=== PATIENT | female | born 1990 | race Caucasian/White ===

== ENCOUNTER 2023-11-02 07:01 | Observation (INO) | payer BC ==
[2023-11-02 08:43] LABS: Basophils % (A) 0 %; Eosinophils # (A) 0.1 k/uL (0-0.7); Eosinophils % (A) 1 %; HCT 34.2 % (34.0-46.0); HGB 11.2 gm/dL (11.4-16.0); Lymphocytes # (A) 2.2 k/uL (1.0-4.8); Lymphocytes % (A) 23 %; MCH 30.3 pg (25.0-35.0); MCHC 32.9 g/dL (31.0-37.0); MCV 92.1 fL (80.0-100.0); Monocytes # (A) 0.4 k/uL (0-1.0); Monocytes % (A) 5 %; Neutrophils # (A) 6.4 k/uL (1.3-7.7); Neutrophils % (A) 69 %; Platelet Count 346 k/uL (150-450); RBC 3.72 m/uL (3.80-5.40); WBC 9.2 k/uL (3.8-10.6)
[2023-11-02] MEDS: LACTATED RINGERS 1,000 ML IV ONE (08:56)
[2023-11-02] MEDS: BETAMET ACET-BETAMETH SOD PHOS 6 MG/ML MDV IM SCH (09:09)
[2023-11-02] MEDS: NIFEdipine XL 30 MG TAB.ER.24 PO SCH (09:09)
[2023-11-02 16:03] VITALS: RESP 16
[2023-11-02] MEDS: ACETAMINOPHEN TAB 500 MG TAB PO PRN (20:35)
[2023-11-03 01:49] VITALS: BP 103/59; PULSE 87; TEMP 96.9
--- NOTE | 2023-11-03 09:08 | P.HPOB ---
History of Present Illness H&P Date: 11/03/23 Chief Complaint: IUP @ 31 weeks, complete previa, VB This is a 22 yo at 31 weeks of with known complete previa that started bleeding yesterday am. She states she did not fill a pad, but had quarter size spots on a pad. she noted an occasional ctx. she was admitted overnight for observation. she has a h/o a term 39 . she has been receiving routine care with my self complicated by a complete previa. Review of Systems Constitutional: Denies chills, Denies fatigue, Denies fever Ears, nose, mouth and throat: Denies headache Cardiovascular: Reports leg edema Respiratory: Denies dyspnea Gastrointestinal: Denies nausea, Denies vomiting Genitourinary: Reports as per HPI, Reports Past Medical History Past Medical History: No Reported History History of Any Multi-Drug Resistant Organisms: None Reported Past Surgical History: Cholecystectomy Past Anesthesia/Blood Transfusion Reactions: No Reported Reaction Past Psychological History: Anxiety, Depression Smoking Status: Never smoker - Past Family History Mother Family Medical History: No Reported History Medications and Allergies Home Medications Medication Instructions Recorded Confirmed Type Aspirin 81 mg PO DAILY 11/02/23 11/02/23 History Vit No.179/Iron/Folic 1 tab PO DAILY 11/02/23 11/02/23 History [ Tablet] Allergies Allergy/AdvReac Type Severity Reaction Status Date / Time amoxicillin [From Augmentin] Allergy Rash/Hives Verified 11/02/23 07:05 clavulanic acid Allergy Rash/Hives Verified 11/02/23 07:05 [From Augmentin] Exam Osteopathic Statement: *. No significant issues noted on an osteopathic structural exam other than those noted in the History and Physical/Consult. Vital Signs Temp Pulse Resp BP Pulse Ox 11/03/23 01:13 96.9 F L 87 16 103/59 98 11/02/23 15:32 98.8 F 105 H 16 120/74 11/02/23 08:57 97.3 F L 118 H 18 116/81 99 Intake and Output 11/02/23 11/03/23 11/03/23 22:59 06:59 14:59 Other: # Voids 2 2 Targeted physical exam was performed upon admission, patient appeared comfortable lying in bed, breathing was nonlabored, abdomen is noted to be gravid and nontender, cervical exam is deferred as known complete previa, heart tones were noted to be category 1, no contractions were graphing. Results Result Diagrams: 11/02/23 08:15 Assessment and Plan (1) 31 weeks gestation of Current Visit: Yes Status: Acute Code(s): Z3A.31 - 31 WEEKS GESTATION OF SNOMED Code(s): 79662335 (2) Complete placenta previa nos or without hemorrhage, third trimester Current Visit: Yes Status: Acute Code(s): O44.03 - COMPLETE PLACENTA PREVIA NOS OR WITHOUT HEMOR, THIRD TRI SNOMED Code(s): 6505593 (3) Vaginal bleeding in Current Visit: Yes Status: Acute Code(s): O46.90 - ANTEPARTUM HEMORRHAGE, UNSPECIFIED, UNSPECIFIED TRIMESTER SNOMED Code(s): 90592662436613148 Plan: 33-year-old G3, P1 at 31 weeks of presents with vaginal bleeding that started early this evening. Patient has a known complete previa. Patient presented to triage where a small amount of bleeding was noted on patient's pad. Quarter size spots of blood were appreciated on her pad. Patient was admitted with for IV hydration, pad counts and close observation given known complete previa.
--- NOTE | 2023-11-03 09:09 | P.DS ---
Providers Date of admission: 11/02/23 08:51 Expected date of discharge: 11/03/23 Attending physician: Dayana William Primary care physician: Stated None - Discharge Diagnosis(es) (1) 31 weeks gestation of Current Visit: Yes Status: Acute (2) Complete placenta previa nos or without hemorrhage, third trimester Current Visit: Yes Status: Acute (3) Vaginal bleeding in Current Visit: Yes Status: Acute Hospital Course: 33-year-old G3, P1 at 31-4/7 weeks presented yesterday with complaints of vaginal bleeding with known complete previa. Patient was admitted for close observation. Patient did receive betamethasone for lung maturation. Patient has done well through her observation period. Bleeding has ceased and now is only noted to be brown or nonexistent. Patient denies contractions. Patient notes good movement. heart tones are NST are category 1. Will plan discharge home with pelvic rest, modified bedrest. Patient has an appointment in the office next week, discussed routine weekly nonstress test and obstetrical appointments. Discussion regarding delivery at 37 weeks via C- section. Bleeding precautions were reviewed. Patient and state understanding of plan Patient Condition at Discharge: Good Plan - Discharge Summary New Discharge Prescriptions: No Action Vit No.179/Iron/Folic [ Tablet] 1 tab PO DAILY Aspirin 81 mg PO DAILY Discharge Medication List Aspirin 81 mg PO DAILY 11/02/23 [History] Vit No.179/Iron/Folic [ Tablet] 1 tab PO DAILY 11/02/23 [History] Follow up Appointment(s)/Referral(s): Dayana William DO [Doctor of Osteopathic Medicine] - 1 Week Patient Instructions/Handouts: Placenta Previa (DC), Placenta Previa (GEN) Activity/Diet/Wound Care/Special Instructions: Patient is to be off work from here until period. Any further episodes of vaginal bleeding she is urged to contact us or be seen in OB triage, patient is to continue with routine weekly obstetrical appointments. Patient to call with any concerns or questions. Discharge Disposition: HOME SELF-CARE
--- NOTE | 2023-11-03 18:31 | P.MSEPDOC ---
Presenting Problems - Arrival Data Date of Arrival on Unit: 11/02/23 Time of Arrival on Unit: 07:00 Mode of Transport: Ambulatory - Complaint OB-Reason for Admission/Chief Complaint: Vaginal Bleeding Medical History - Information : 3 Para: 1 Term: 1 : 0 Abortions: Spontaneous or Elective: 1 Number of Living Children: 1 - Gestational Age Gestational Age by OG (wks/days): 31 Weeks and 3 Days - History Complications: Placenta Previa Review of Systems - Review of Systems Constitutional: No problems Breast: No problems ENT: No problems Cardiovascular: No problems Respiratory: No problems Gastrointestinal: No problems Genitourinary: No problems Musculoskeletal: No problems Neurological: No problems Skin: No problems Vital Signs - Temperature Temperature: 96.9 F Temperature Source: Temporal Artery Scan - Pulse Right Pulse Rate: 87 Pulse Assessment Method: Pulse Oximetry - Respirations Respiratory Rate: 16 Oxygen Delivery Method: Room Air O2 Sat by Pulse Oximetry: 98 - Blood Pressure Right Arm Blood Pressure: 103/59 Blood Pressure Mean: 73 Blood Pressure Source: Automatic Cuff Medical Screen Scoring - Uterine Contractions Frequency From (mins): 2 Frequency To (mins): 5 Duration From (seconds): 30 Duration To (seconds): 50 Intensity: Mild Resting: Soft to palpation - Assessment - Baby A Baseline FHR: 135 Heart Rate - NICHD Category: Category I (Normal) NST: Reactive Physician Notification - Physician Notified Physician Notified Date: 11/02/23 Physician Notified Time: 07:40 Physician: Dayana William New Order Received: Yes - Notification Comment Comment: IV, labs, pt Stewart will be in to see Pt Maternal Triage Index - Maternal Triage Index Presenting for scheduled procedure w/no complaint: No - Stat/Priority 1 Stat Priority 1: No - Urgent/Priority 2 Urgent Priority 2: Yes Provider Notified: Dayana William Provider Notified Time: 07:40 Criteria Met for Priority 2: < 34 spotting, contractions Disposition - Disposition OB Disposition: Admit Discharge Date: 11/03/23 Discharge Time: 09:50 I agree with the RN Medical Screening Exam: Yes Case reviewed; plan agreed upon as documented in EMR&OBIX.: Yes Diagnosis: RELATED CONDITIONS, UNSPECIFIED, THIRD TRIMESTER
== END 2023-11-03 09:50 | disposition home or self-care (01) ==
LOC: FBPOP 07:01 → 4FBP 08:51
PROVIDERS: ADMIT Obstetrics & Gynecology Obstetrics; ATTEND Obstetrics & Gynecology Obstetrics
DX: O44.13 Complete placenta previa with hemorrhage, third trimester (principal); O99.343 Other mental disorders complicating pregnancy, third trimester; F32.A Depression, unspecified; F41.9 Anxiety disorder, unspecified; Z3A.31 31 weeks gestation of pregnancy; Z79.82 Long term (current) use of aspirin; Z88.0 Allergy status to penicillin
CPT/HCPCS: 59025; 99215; 96365; 96372 ×2; 85025; G0378 ×2; G0379; J0702 ×2

== ENCOUNTER 2023-11-14 09:24 | Observation (INO) | payer BC ==
[2023-11-14] MEDS: LACTATED RINGERS 1,000 ML IV SCH (10:15)
[2023-11-14 11:05] LABS: Basophils % (A) 0 %; Eosinophils # (A) 0.1 k/uL (0-0.7); Eosinophils % (A) 1 %; HCT 31.1 % (34.0-46.0); HGB 10.6 gm/dL (11.4-16.0); Lymphocytes # (A) 2.2 k/uL (1.0-4.8); Lymphocytes % (A) 24 %; MCH 30.7 pg (25.0-35.0); MCHC 34.2 g/dL (31.0-37.0); MCV 89.7 fL (80.0-100.0); Mean Platelet Volume 8.5; Monocytes # (A) 0.5 k/uL (0-1.0); Monocytes % (A) 5 %; Neutrophils # (A) 6.1 k/uL (1.3-7.7); Neutrophils % (A) 68 %; Platelet Count 349 k/uL (150-450); RBC 3.46 m/uL (3.80-5.40); RDW 14.2 % (11.5-15.5)
--- NOTE | 2023-11-14 11:28 | P.HPOB ---
History of Present Illness H&P Date: 11/14/23 Chief Complaint: Vaginal bleeding with marginal previa 33-year-old presents at 33 weeks and 1 day complaining of vaginal bleeding. She has a known marginal previa. Patient had bleeding 2 weeks ago and got steroids. The bleeding had stopped but then restarted this morning. On the monitor the heart tones are 135 with moderate variability, category 1. She is having cramping noted on the monitor every few minutes and feeling like cramping. Review of Systems All systems: negative Constitutional: Denies chills, Denies fever Eyes: denies blurred vision, denies pain Ears, nose, mouth and throat: Denies headache, Denies sore throat Cardiovascular: Denies chest pain, Denies shortness of breath Respiratory: Denies cough Gastrointestinal: Denies abdominal pain, Denies diarrhea, Denies nausea, Denies vomiting Genitourinary: Denies dysuria, Denies hematuria Musculoskeletal: Denies myalgias Integumentary: Denies pruritus, Denies rash Neurological: Denies numbness, Denies weakness Psychiatric: Denies anxiety, Denies depression Endocrine: Denies fatigue, Denies weight change Past Medical History Past Medical History: No Reported History History of Any Multi-Drug Resistant Organisms: None Reported Past Surgical History: Cholecystectomy Additional Past Surgical History / Comment(s): D&C Past Anesthesia/Blood Transfusion Reactions: No Reported Reaction Past Psychological History: Anxiety, Depression Smoking Status: Never smoker Past Alcohol Use History: None Reported Past Drug Use History: None Reported - Past Family History Mother Family Medical History: No Reported History Medications and Allergies Home Medications Medication Instructions Recorded Confirmed Type Aspirin 81 mg PO DAILY 11/02/23 11/14/23 History Vit No.179/Iron/Folic 1 tab PO DAILY 11/02/23 11/14/23 History [ Tablet] NIFEdipine XL [Procardia Xl] 30 mg PO DAILY 11/14/23 11/14/23 History Allergies Allergy/AdvReac Type Severity Reaction Status Date / Time amoxicillin [From Augmentin] Allergy Rash/Hives Verified 11/14/23 09:41 clavulanic acid Allergy Rash/Hives Verified 11/14/23 09:41 [From Augmentin] Exam Osteopathic Statement: *. No significant issues noted on an osteopathic structural exam other than those noted in the History and Physical/Consult. Vital Signs Temp Pulse Resp BP Pulse Ox 11/14/23 09:52 97.9 F 114 H 18 137/81 95 Intake and Output 11/13/23 11/14/23 11/14/23 22:59 06:59 14:59 Other: Weight 94.347 kg Heart: Regular rate and rhythm Lungs: Clear to auscultation bilaterally Abdomen: Soft, nontender Extremities: Negative Homans sign Sterile speculum exam: There is some blood in the vaginal vault coming from inside the cervix. Results Result Diagrams: 11/14/23 10:15 Abnormal Lab Results - Last 24 Hours (Table) 11/14/23 Range/Units 10:15 RBC 3.46 L (3.80-5.40) m/uL Hgb 10.6 L (11.4-16.0) gm/dL Hct 31.1 L (34.0-46.0) % Assessment and Plan (1) 33 weeks gestation of Current Visit: Yes Status: Acute Code(s): Z3A.33 - 33 WEEKS GESTATION OF SNOMED Code(s): 14369727 (2) Marginal placenta previa with intrapartum hemorrhage in third trimester Current Visit: Yes Status: Acute Code(s): O44.33 - PARTIAL PLACENTA PREVIA WITH HEMORRHAGE, THIRD TRIMESTER SNOMED Code(s): 75715922 Plan: 1. Admit to family place for observation 2. Continuous monitoring 3. Abdominal and transvaginal ultrasound to check the placenta location and to look for abruption 4. CBC and type and cross
--- NOTE | 2023-11-14 12:17 | US ---
EXAMINATION TYPE: US OB TV Cervical Measurement DATE OF EXAM: 11/14/2023 COMPARISON: Correlation with transabdominal study performed immediately prior. REASON FOR EXAM: Per Ordering Physician?this transvaginal scan is to assess the CERVICAL LENGTH for p lacenta previa GESTATIONAL AGE / DATING Physician Established: (33 weeks/1 days) EDC: 01/01/24 MATERNAL/ SURVEY CERVICAL LENGTH (transvaginal: norm> 2.5cm): 3.5 cm Ultrasound evidence of shortened cervix? no Ultrasound evidence of funneling? no small amount of fluid within cervical canal *marginal to complete placenta previa PRESENTATION: Vertex HEART RATE: 135 bpm IMPRESSION: 1. Cervical length 3.5 cm, with a small amount of fluid within the cervical canal. No evidence of fu nneling. 2. Placenta appears marginal to complete placenta previa, judged more towards the latter.
--- NOTE | 2023-11-14 12:25 | US ---
EXAMINATION TYPE: US OB >= 14 wk fetus DATE OF EXAM: 11/14/2023 COMPARISON: None CLINICAL INDICATION: Female, 33 years old with history of Vaginal bleeding, known placenta previa; bl eeding, known placenta previa TECHNIQUE: Transabdominal (TA) ultrasound of the gravid uterus performed. Transvaginal scanning is p erformed and reported separately. GESTATIONAL AGE / DATING Physician Established: (33 weeks/1 days) EDC: 01/01/24 Dates by LMP: LMP unknown Dates by First Scan: No previous this is first scan here Dates by Current Scan: (34 weeks/3 days) EDC: 12/23/23 SURVEY IUP: Single PLACENTA: Anterior PREVIA: marginal to complete (see TV imaging done subsequently) JAMES: 11.5 cm, Normal CERVICAL LENGTH (transabdominal: norm > 3.0cm): 4.2 cm *small amount of fluid noted within cervical canal [Note: transvaginally the cervical length is 3.5 cm, with a small amount of fluid within the cervical canal. No evidence of funneling.] BIOMETRY PRESENTATION: Vertex LIE: Oblique BPD: 8.4 cm 33 weeks / 5 days HC: 31.0 cm 34 weeks / 4 days AC: 30.2 cm 34 weeks / 2 days FL: 6.8 cm 35 weeks / 1 days ESTIMATED WEIGHT IN GRAMS: 2425 grams ESTIMATED WEIGHT IN LBS/OZ: 5 lbs. 6 oz. WEIGHT PERCENTAGE BASED ON ESTABLISHED DATES: 80% HC/AC: 1.02 Normal FL/AC: 23% Normal HEART RATE: 135 bpm RHYTHM: Normal IMPRESSION: 1. Single, live intrauterine fetus measuring approximately 34 weeks 3 days. Further details above. 2. Vertex presentation. 3. Cervical length appears within normal limits. There is a small amount of fluid within the cervical canal. No evidence of funneling. 4. Placenta appears marginal to complete placenta previa, judged more towards the latter.
[2023-11-15 07:57] LABS: Basophils % (A) 0 %; Eosinophils # (A) 0.1 k/uL (0-0.7); Eosinophils % (A) 1 %; HCT 31.1 % (34.0-46.0); Lymphocytes # (A) 2.5 k/uL (1.0-4.8); Lymphocytes % (A) 33 %; MCH 29.7 pg (25.0-35.0); MCHC 32.4 g/dL (31.0-37.0); MCV 91.9 fL (80.0-100.0); Mean Platelet Volume 8.2; Monocytes # (A) 0.5 k/uL (0-1.0); Monocytes % (A) 6 %; Neutrophils # (A) 4.4 k/uL (1.3-7.7); Neutrophils % (A) 57 %; Platelet Count 329 k/uL (150-450); RBC 3.38 m/uL (3.80-5.40); RDW 13.8 % (11.5-15.5); WBC 7.7 k/uL (3.8-10.6)
--- NOTE | 2023-11-15 08:40 | P.PN ---
Progress Note - Text Progress Note Date: 11/15/23 33yo withknown complete previa. Patient was admitted approximately 2 weeks ago for vaginal bleeding that quickly turned to brown discharge. Patient did receive steroids at that time. Patient states she noted passage of a clot at home with bright red bleeding therefore presented to OB triage. Bleeding was noted coming from the cervix. A small amount of/trickle was noted on examination. Patient had uterine irritability at the time. heart tones have been category 1 throughout her stay. This morning patient notes brown discharge, denies contractions. Patient is noting good movement. Vital signs stable Labs reviewed, hemoglobin 10.6 on admission 10.0 this morning In general this is a well-nourished well-developed female in no acute distress resting comfortably in bed Abdomen is gravid heart tones noted to be category 1 Rare contraction Assessment Intrauterine at 33-2/7 weeks Complete previa Vaginal bleeding Plan Continue observation given bleeding yesterday, patient has received steroids at her last admission. Restart Procardia this morning, will advance diet and observe through the day. If no further bleeding today will consider discharge home tomorrow.
[2023-11-15] MEDS: NIFEdipine XL 30 MG TAB.ER.24 PO SCH (09:30)
[2023-11-15] MEDS: PRENATAL VIT-IRON-FOLIC ACID 1 EACH TABLET PO SCH (09:30)
[2023-11-16 08:47] VITALS: BP 112/74; PULSE 95; RESP 16; TEMP 97.3
--- NOTE | 2023-11-16 08:47 | P.DS ---
Providers Date of admission: 11/14/23 09:54 Expected date of discharge: 11/16/23 Attending physician: Dayana William Primary care physician: Stated None - Discharge Diagnosis(es) (1) 33 weeks gestation of Current Visit: Yes Status: Acute (2) Complete placenta previa nos or without hemorrhage, third trimester Current Visit: No Status: Acute (3) Vaginal bleeding in Current Visit: No Status: Acute Hospital Course: 33-year-old G3, P1 at 33-3/7 weeks that presented over the weekend with complaints of vaginal bleeding. Patient has known complete previa. Patient has been watched closely. This is her second bleed. Bleed was noted to moderate in nature. Complete previa remains on ultrasound evaluation. Patient has had no further bleeding for the past 24 hours. Patient notes good movement. She denies contractions. Patient Condition at Discharge: Good Plan - Discharge Summary New Discharge Prescriptions: No Action Vit No.179/Iron/Folic [ Tablet] 1 tab PO DAILY Aspirin 81 mg PO DAILY NIFEdipine XL [Procardia Xl] 30 mg PO DAILY Discharge Medication List Aspirin 81 mg PO DAILY 11/02/23 [History] Vit No.179/Iron/Folic [ Tablet] 1 tab PO DAILY 11/02/23 [History] NIFEdipine XL [Procardia Xl] 30 mg PO DAILY 11/14/23 [History] Follow up Appointment(s)/Referral(s): Dayana William DO [Doctor of Osteopathic Medicine] - 1-2 Days Patient Instructions/Handouts: Placenta Previa (DC), Placenta Previa (GEN) Activity/Diet/Wound Care/Special Instructions: Patient is to return to bedrest. Up to the bathroom privileges. Patient is to follow-up in the office on .. Bleeding precautions reviewed Discharge Disposition: HOME SELF-CARE
== END 2023-11-16 10:40 | disposition home or self-care (01) ==
LOC: FBPOP 09:24 → 4FBP 09:54
PROVIDERS: ADMIT Obstetrics & Gynecology; ATTEND Obstetrics & Gynecology Obstetrics
DX: O44.13 Complete placenta previa with hemorrhage, third trimester (principal); Z3A.33 33 weeks gestation of pregnancy; Z79.82 Long term (current) use of aspirin; Z79.899 Other long term (current) drug therapy; Z88.0 Allergy status to penicillin; Z88.8 Allergy status to other drugs, medicaments and biological substances
CPT/HCPCS: 59025; 99213; 96360; 96361; 86900; 86901; 85025 ×2; 86850; 76805; 76817; G0378; S0197 ×2

== ENCOUNTER 2023-11-17 23:04 | Inpatient (IN) | payer BC ==
--- NOTE | 2023-11-17 23:49 | P.HPOB ---
History of Present Illness H&P Date: 11/17/23 Chief Complaint: IUP @ 33 4/7 weeks, complete previa, vaginal bleeding 33-year-old 3 para 1-0-1-1 at 33-4/7 weeks that presents to labor and delivery with complaints of bright red bleeding that began at home. Patient is noting uterine cramping in addition. Patient was just recently discharged from the hospital on Wednesday for an episode of vaginal bleeding over the weekend. Patient had an initial episode of bleeding followed by continued brown discharge then 24 hours of no bleeding. Patient began bleeding this evening and presented back to triage. Patient does note good movement. Patient states she did take her Procardia today. Review of Systems Constitutional: Reports fatigue, Denies chills, Denies fever Ears, nose, mouth and throat: Denies headache Cardiovascular: Reports leg edema Respiratory: Denies dyspnea Gastrointestinal: Denies nausea, Denies vomiting Genitourinary: Reports as per HPI, Reports Past Medical History Past Medical History: No Reported History History of Any Multi-Drug Resistant Organisms: None Reported Past Surgical History: Cholecystectomy Additional Past Surgical History / Comment(s): D&C Past Anesthesia/Blood Transfusion Reactions: No Reported Reaction Smoking Status: Never smoker - Past Family History Mother Family Medical History: No Reported History Medications and Allergies Home Medications Medication Instructions Recorded Confirmed Type Aspirin 81 mg PO DAILY 11/02/23 11/14/23 History Vit No.179/Iron/Folic 1 tab PO DAILY 11/02/23 11/14/23 History [ Tablet] NIFEdipine XL [Procardia Xl] 30 mg PO DAILY 11/14/23 11/14/23 History Allergies Allergy/AdvReac Type Severity Reaction Status Date / Time amoxicillin [From Augmentin] Allergy Rash/Hives Verified 11/14/23 09:41 clavulanic acid Allergy Rash/Hives Verified 11/14/23 09:41 [From Augmentin] Exam Osteopathic Statement: *. No significant issues noted on an osteopathic structural exam other than those noted in the History and Physical/Consult. Intake and Output 11/17/23 11/17/23 11/18/23 14:59 22:59 06:59 Other: Weight 94.347 kg Targeted physical exam is performed this date General is a well-nourished well- developed female in no acute distress, breathing is nonlabored, abdomen is gravid, heart tones are noted to be category 1 and uterine irritability is appreciated, cervical exam is deferred given known complete previa, no active bleeding is noted on inspection of the external vaginal vault Assessment and Plan (1) 33 weeks gestation of Current Visit: No Status: Acute Code(s): Z3A.33 - 33 WEEKS GESTATION OF SNOMED Code(s): 92771554 (2) Complete placenta previa nos or without hemorrhage, third trimester Current Visit: No Status: Acute Code(s): O44.03 - COMPLETE PLACENTA PREVIA NOS OR WITHOUT HEMOR, THIRD TRI SNOMED Code(s): 3961084 (3) Vaginal bleeding in Current Visit: No Status: Acute Code(s): O46.90 - ANTEPARTUM HEMORRHAGE, UN SPECIFIED, UNSPECIFIED TRIMESTER SNOMED Code(s): 72509995470235859 Plan: 33-year-old G3, P1 at 33-4/7 weeks that presents with an episode of vaginal bleeding with known complete previa. Patient has been admitted twice before for very similar complaints. Patient's vital signs are stable. Will obtain CBC and type and screen. Plan to increase Procardia dose to 60. Continuous monitoring through the night, and pad counts
[2023-11-17] MEDS ORDERED: METHYLERGONOVINE 0.2 MG/ML 1 ML AMP IM PRN (23:50)
[2023-11-17] MEDS ORDERED: TERBUTALINE 1 MG/ML VIAL SQ PRN (23:50)
[2023-11-18] MEDS: LACTATED RINGERS 1,000 ML IV SCH (00:01)
[2023-11-18] MEDS: NIFEdipine XL 30 MG TAB.ER.24 PO STA (00:01)
[2023-11-18 01:57] LABS: Basophils % (A) 0 %; Eosinophils # (A) 0.1 k/uL (0-0.7); Eosinophils % (A) 1 %; HCT 31.7 % (34.0-46.0); HGB 10.3 gm/dL (11.4-16.0); Lymphocytes # (A) 2.8 k/uL (1.0-4.8); Lymphocytes % (A) 26 %; MCH 29.8 pg (25.0-35.0); MCHC 32.5 g/dL (31.0-37.0); MCV 91.6 fL (80.0-100.0); Monocytes # (A) 0.5 k/uL (0-1.0); Monocytes % (A) 5 %; Neutrophils # (A) 7.4 k/uL (1.3-7.7); Neutrophils % (A) 67 %; Platelet Count 322 k/uL (150-450); RBC 3.46 m/uL (3.80-5.40)
--- NOTE | 2023-11-18 09:56 | P.PN ---
Progress Note - Text Progress Note Date: 11/18/23 Patient did well overnight, minimal bleeding was appreciated when up to the bathroom. Patient states it is bright red with wiping but minimal brown discharge is appreciated on the earnest-pad. Patient denies contractions. Patient notes good movement. monitoring has been reassuring with category 1 heart tones and uterine irritability on occasion. Patient did receive her Procardia 60 mg this morning. Vital signs stable General ; patient appears comfortable in bed, tearful with plan of care being discussed Breathing appears nonlabored Abdomen is gravid and nontender heart tones noted be category 1 occasional contraction some uterine inability Cervical exam is deferred Assessment IUP at 33-5/7 weeks Complete placenta previa Vaginal bleeding Plan Continue close observation until 35 weeks, given this is her third episode of bright red bleeding at home with subsequent admission discussion regarding hospital admission is had with patient and her . Patient was recently discharged on Wednesday after no bleeding for 24 hours. Patient subsequently began bleeding last evening bright red in nature went up to the bathroom. Patient has already received steroids for lung maturation, she is on Procardia for uterine irritability. Discussed possibility of transfer to tertiary care center given early gestational age, they do request [facility] or [facility] if the need for transfer should arise. Long discussion regarding prematurity and stability of her bleeding at this current point. Multiple questions were answered. remains at the bedside given complex nature of this and concerns for his and unborn child.
--- NOTE | 2023-11-19 08:23 | P.PN ---
Subjective Progress Note Date: 11/19/23 Principal diagnosis: IUP at 33 6/7 weeks, complete previa, vaginal bleeding Patient continues to do well. Patient noted scant bleeding overnight. She denies cramping or contractions this morning. testing has been category 1. Vital signs stable In general this is a well-nourished well-developed female in no acute distress resting comfortably in bed Abdomen is noted to be gravid and soft nontender Extremities SCDs in place Assessment Intrauterine at 33-6/7 weeks Complete previa Vaginal bleeding x 3 this Plan Continue close observation with hospital admission given 3 prior bleeds. Patient is frustrated although understands. Risks of transfer discussed patient desires [facility] if possible, discussed if she has a significant bleed while admitted would transfer to [facility]. Multiple questions are answered patient states understanding. Continue NST every shift Patient may get up to the shower today, will monitor for any increased bleeding Objective - Vital Signs Vital signs: Vital Signs Temp 97.2 F L 11/17/23 23:36 Pulse 105 H 11/17/23 23:36 Resp 20 11/17/23 23:36 BP Pulse Ox 97 11/17/23 23:36 FiO2 - Labs CBC & Chem 7: 11/18/23 01:40 Assessment and Plan (1) 33 weeks gestation of Current Visit: No Status: Acute Code(s): Z3A.33 - 33 WEEKS GESTATION OF SNOMED Code(s): 95581135 (2) Complete placenta previa nos or without hemorrhage, third trimester Current Visit: No Status: Acute Code(s): O44.03 - COMPLETE PLACENTA PREVIA NOS OR WITHOUT HEMOR, THIRD TRI SNOMED Code(s): 8763994 (3) Vaginal bleeding in Current Visit: No Status: Acute Code(s): O46.90 - ANTEPARTUM HEMORRHAGE, UNSPECIFIED, UNSPECIFIED TRIMESTER SNOMED Code(s): 06533047966084209
[2023-11-19] MEDS: ACETAMINOPHEN TAB 325 MG TAB PO PRN (21:32)
--- NOTE | 2023-11-20 08:24 | P.PN ---
Subjective Progress Note Date: 11/20/23 Principal diagnosis: Placenta previa s/p third bleed of Ms. Dsouza had no acute events overnight. She is doing well this morning and has no concerns. She is feeling normal movement. She denies any pain. She denies any leakage of fluid, vaginal bleeding, or contractions. Objective - Vital Signs Vital signs: Vital Signs Temp 97.7 F 11/19/23 21:30 Pulse 96 11/19/23 21:30 Resp 16 11/19/23 21:30 BP 127/69 11/19/23 21:30 Pulse Ox 99 11/19/23 21:30 FiO2 - Exam His physical exam was performed. This is a healthy-appearing in no apparent distress. Breathing is nonlabored. Abdomen is gravid and nontender. Extremities are nontender and nonedematous. - Labs CBC & Chem 7: 11/18/23 01:40 Assessment and Plan Assessment: 33 year old at 34 weeks gestation who is hospitalized after her third bleed of the in the context of placenta previa Plan: Continue inpatient management at this time. Time with Patient: Less than 30
--- NOTE | 2023-11-21 09:36 | P.PN ---
Subjective Progress Note Date: 11/21/23 Principal diagnosis: Placenta previa s/p third bleed of Ms. Dsouza had no acute events overnight. She is doing well this morning and has no concerns. She is feeling normal movement. She denies any pain. She denies any leakage of fluid, vaginal bleeding, or contractions. Objective - Vital Signs Vital signs: Vital Signs Temp 96.6 F L 11/21/23 08:00 Pulse 93 11/21/23 08:00 Resp 18 11/21/23 08:00 BP 117/70 11/21/23 08:00 Pulse Ox 96 11/21/23 08:00 FiO2 - Exam His physical exam was performed. This is a healthy-appearing in no apparent distress. Breathing is nonlabored. Abdomen is gravid, no fundal tenderness. Extremities are nontender and nonedematous. - Labs CBC & Chem 7: 11/18/23 01:40 Assessment and Plan Assessment: 33 year old at 34 weeks and 1 day gestation who is hospitalized after her third bleed of the in the context of placenta previa Plan: Continue inpatient management at this time. NSTs qShift.
--- NOTE | 2023-11-22 09:24 | P.PN ---
Progress Note - Text Progress Note Date: 11/22/23 Patient continues to do well, no further bleeding noted over the weekend. she states she is feeling well overall and denies concerns. She admits that if she goes home she struggles to say down and the last time she was discharged she was back 1-2 days later with a bleed. VSS gen she appears well NAD Abd gravid and appropriate for GA Ext NT, minimal edema NST cat 1 occ uterine irritability A IUP @ 34 08/25 complete previa, s/p 3rd bleed P doing well no further bleeding since will continue with current plan if no further bleeding will consider d/c at 35 weeks questions answered and she states understanding.
--- NOTE | 2023-11-24 06:54 | P.PN ---
Subjective Progress Note Date: 11/23/23 Principal diagnosis: IUP at 34-3/7 weeks, complete previa, vaginal bleeding Late entry Patient did have an episode of bleeding last evening, patient states she passed a small clot, bleeding is less this morning and more like brown discharge. Patient denies cramping. Patient notes good movement. Vital signs remained stable Will have symptoms are noted to be category 1 with uterine irritability appreciated Assessment IUP at 34-3/7 weeks Complete previa Vaginal bleeding Plan Continue current management as bleeding has slowed, suspect delivery at 35 weeks with primary patient does elect bilateral salpingectomy at the time of . Permanence of salpingectomy is discussed patient states understanding and is done with childbearing Objective - Vital Signs Vital signs: Vital Signs Temp 97.8 F 11/24/23 04:30 Pulse 101 H 11/24/23 04:30 Resp 15 11/24/23 04:30 BP 96/53 11/24/23 04:30 Pulse Ox 97 11/24/23 04:30 FiO2 - Labs CBC & Chem 7: 11/18/23 01:40 Assessment and Plan (1) 33 weeks gestation of Current Visit: No Status: Acute Code(s): Z3A.33 - 33 WEEKS GESTATION OF SNOMED Code(s): 09896484 (2) Complete placenta previa nos or without hemorrhage, third trimester Current Visit: No Status: Acute Code(s): O44.03 - COMPLETE PLACENTA PREVIA NOS OR WITHOUT HEMOR, THIRD TRI SNOMED Code(s): 3438482 (3) Vaginal bleeding in Current Visit: No Status: Acute Code(s): O46.90 - ANTEPARTUM HEMORRHAGE, UNSPECIFIED, UNSPECIFIED TRIMESTER SNOMED Code(s): 88337525025249594
--- NOTE | 2023-11-24 06:56 | P.PN ---
Progress Note - Text Progress Note Date: 11/24/23 Patient had a small amount of bleeding overnight, she notes the bleeding to be brown in nature this morning. Patient did note an slight amount of cramping when the bleeding occurred. Good movement is appreciated. Vital signs stable heart tones category 1 on NST In general well-nourished well-developed female in no acute distress Abdomen gravid nontender Extremities trace edema is appreciated Assessment IUP at 34-4/7 weeks Complete previa Vaginal bleeding Plan Continue NST every shift, pad counts as needed Will start IV fluids and attempt to decrease uterine cramping, continue Procardia daily Bleeding has stopped this morning, will continue current plan and suspect delivery at 35 and 0 given clinical status
[2023-11-24] MEDS: LACTATED RINGERS 1,000 ML IV SCH (07:27)
[2023-11-24 16:00] VITALS: BMI 39.2
--- NOTE | 2023-11-25 11:55 | P.PN ---
Subjective Progress Note Date: 11/25/23 Principal diagnosis: IUP at 34-3/7 weeks, complete previa, vaginal bleeding Patient is doing well this morning. She denies any bleeding overnight. She denies cramping or changes in uterine activity. Gross movement. Vital signs stable In general this is a well-nourished well-developed female in no acute distress resting comfortably in bed Abdomen is gravid Extremities trace edema heart tones are noted to be category 1 on NST, occasional uterine activity Assessment IUP at 34 5/7 weeks Complete previa Plan Continue current plan of observation DC IV fluids this morning, pivel IV Objective - Vital Signs Vital signs: Vital Signs Temp 96.9 F L 11/25/23 08:00 Pulse 83 11/25/23 08:00 Resp 16 11/25/23 08:00 BP 138/63 11/25/23 08:00 Pulse Ox 97 11/24/23 15:46 FiO2 Intake & Output 11/24/23 11/25/23 11/25/23 18:59 06:59 18:59 Weight 94.347 kg Other: Voiding Method Toilet # Voids 1 - Labs CBC & Chem 7: 11/18/23 01:40 Assessment and Plan (1) 33 weeks gestation of Current Visit: No Status: Acute Code(s): Z3A.33 - 33 WEEKS GESTATION OF SNOMED Code(s): 54808061 (2) Complete placenta previa nos or without hemorrhage, third trimester Current Visit: No Status: Acute Code(s): O44.03 - COMPLETE PLACENTA PREVIA NOS OR WITHOUT HEMOR, THIRD TRI SNOMED Code(s): 4881270 (3) Vaginal bleeding in Current Visit: No Status: Acute Code(s): O46.90 - ANTEPARTUM HEMORRHAGE, UNSPECIFIED, UNSPECIFIED TRIMESTER SNOMED Code(s): 90414456713410367
[2023-11-25 13:17] LABS: HCT 33.5 % (34.0-46.0); MCH 30.5 pg (25.0-35.0); MCHC 32.9 g/dL (31.0-37.0); MCV 92.6 fL (80.0-100.0); Mean Platelet Volume 8.7; Platelet Count 356 k/uL (150-450); RBC 3.62 m/uL (3.80-5.40); RDW 14.2 % (11.5-15.5); WBC 8.8 k/uL (3.8-10.6)
[2023-11-26 00:11] VITALS: RESP 16
--- NOTE | 2023-11-26 10:30 | P.PN ---
Progress Note - Text Progress Note Date: 11/26/23 Patient did well overnight. No further bleeding. Patient notes cramping to be stable. Gross movement is appreciated. Vital signs stable In general is well-nourished well-developed female in no acute distress is noted Abdomen is gravid NST currently in progress NST noted be category 1 Assessment IUP at 34-6/7 weeks Complete previa Vaginal bleeding Plan Continue conservative observation, she is desirous once she gets 35 weeks to go home. Precautions of bleeding are discussed and concerns with that. Patient is desirous of delivery after 35 weeks, understandably she is tearful today as she has been admitted for close observation through the week. Long discussion regar ding gestational age and maturation. Multiple questions were answered
[2023-11-27 09:09] VITALS: BP 111/65; PULSE 108; TEMP 97
--- NOTE | 2023-11-27 09:49 | P.DS ---
Providers Date of admission: 11/17/23 23:34 Expected date of discharge: 11/27/23 Attending physician: Dayana William Primary care physician: Stated None - Discharge Diagnosis(es) (1) 33 weeks gestation of Current Visit: No Status: Acute (2) Complete placenta previa nos or without hemorrhage, third trimester Current Visit: No Status: Acute (3) Vaginal bleeding in Current Visit: No Status: Acute Hospital Course: 33-year-old 3 para 1-0-1-1 at 35-0/7 weeks that presented to labor and delivery on 11/16 with complaints of bright red bleeding and cramping. Patient has a known complete previa and this was her third episode of bleeding. Patient had a recent admission prior to this 1 over the weekend with bright red vaginal bleeding which had been transition to brown discharge and then 24 hours of no bleeding. Patient has been taking Procardia daily in addition given uterine cramping. Patient has had a few episodes of bleeding during this admission, for the last 72 hours no bleeding has been appreciated. Patient is requesting discharge home. NST this morning is noted to be category 1 occasional uterine irritability is appreciated. Ultrasound will be performed prior to discharge for estimated weight, JAMES, patient. Patient does note good movement this morning, and states she is feeling well but ready to go home. Patient Condition at Discharge: Good Plan - Discharge Summary Discharge Rx Participant: No New Discharge Prescriptions: No Action Vit No.179/Iron/Folic [ Tablet] 1 tab PO DAILY Aspirin 81 mg PO DAILY NIFEdipine XL [Procardia Xl] 30 mg PO DAILY Discharge Medication List Aspirin 81 mg PO DAILY 11/02/23 [History] Vit No.179/Iron/Folic [ Tablet] 1 tab PO DAILY 11/02/23 [History] NIFEdipine XL [Procardia Xl] 30 mg PO DAILY 11/14/23 [History] Follow up Appointment(s)/Referral(s): Dayana William DO [Doctor of Osteopathic Medicine] - 3 Days Activity/Diet/Wound Care/Special Instructions: Continued pelvic rest until delivery, bleeding precautions have been reviewed with patient. Given she is 35 weeks and received steroids for lung maturation will plan discharge home with strict precautions. Patient is to follow-up on Wednesday or sooner should she have an increase in vaginal bleeding. Discharge Disposition: HOME SELF-CARE
--- NOTE | 2023-11-27 12:04 | US ---
EXAMINATION TYPE: US OB limited DATE OF EXAM: 11/27/2023 COMPARISON: [id number] CLINICAL INDICATION: Female, 33 years old with history of complete previa; EXAM PERFORMED: Transabdominal (TA) GESTATIONAL AGE / DATING Physician Established: (35 weeks/0 days) EDC: 01/01/2024 Dates by Current Scan: (35 weeks/1 days) EDC: 12/31/2023 SURVEY JAMES: 12.8 cm Normal PRESENTATION: Vertex HEART RATE: 156 bpm RHYTHM: Normal BPD: 8.6 cm 34 weeks / 4 days HC: 31.5 cm 35 weeks / 3 days AC: 31.7 cm 35 weeks / 5 days FL: 6.7 cm 34 weeks / 3 days ESTIMATED WEIGHT IN GRAMS: 2603 grams ESTIMATED WEIGHT IN LBS/OZ: 5 lbs. 12 oz. WEIGHT PERCENTAGE BASED ON ESTABLISHED DATE: 51 % IMPRESSION: 1. Single live intrauterine with established gestational age of 35 weeks 0 days. Current ul trasound biometry is concordant at 35 weeks 1 day (51st percentile for weight). 2. Cephalic presentation. Normal JAMES.
== END 2023-11-27 13:15 | disposition home or self-care (01) | DRG 833 ==
LOC: FBPOP 23:04 → 4FBP 23:34
PROVIDERS: ADMIT Obstetrics & Gynecology Obstetrics; ATTEND Obstetrics & Gynecology Obstetrics
DX: O44.13 Complete placenta previa with hemorrhage, third trimester (principal); Z79.82 Long term (current) use of aspirin; Z79.899 Other long term (current) drug therapy; Z28.310 Unvaccinated for COVID-19; Z88.0 Allergy status to penicillin; Z88.8 Allergy status to other drugs, medicaments and biological substances; Z3A.33 33 weeks gestation of pregnancy
CPT/HCPCS: 59025; 76815; 85025; 85027; 86850; 86900; 86901; 99215

== ENCOUNTER 2023-11-28 00:07 | Inpatient (IN) | payer BC ==
[2023-11-28] MEDS ORDERED: METHYLERGONOVINE 0.2 MG/ML 1 ML AMP IM PRN (00:57)
[2023-11-28] MEDS ORDERED: miSOPROStoL 200 MCG TAB PO PRN (00:57)
[2023-11-28] MEDS ORDERED: CARBOPROST TROMETHAMINE 250 MCG/ML 1 ML AMP IM PRN (00:57)
[2023-11-28] MEDS ORDERED: OXYTOCIN 10 UNIT/ML 1 ML VIAL IM PRN (00:57)
[2023-11-28] MEDS ORDERED: TRANEXAMIC 1,000 MG/100ML-NACL 1,000 MG in EMPTY BAG 1 BAG IV PRN (00:57)
[2023-11-28 01:21] LABS: Basophils % (A) 0 %; Eosinophils # (A) 0.1 k/uL (0-0.7); Eosinophils % (A) 1 %; HCT 32.4 % (34.0-46.0); HGB 10.7 gm/dL (11.4-16.0); Lymphocytes # (A) 3.2 k/uL (1.0-4.8); Lymphocytes % (A) 32 %; MCH 29.8 pg (25.0-35.0); MCV 90.4 fL (80.0-100.0); Mean Platelet Volume 9.1; Monocytes # (A) 0.5 k/uL (0-1.0); Monocytes % (A) 5 %; Neutrophils # (A) 6.1 k/uL (1.3-7.7); Neutrophils % (A) 60 %; Platelet Count 378 k/uL (150-450); RBC 3.58 m/uL (3.80-5.40); RDW 14.3 % (11.5-15.5); WBC 10.2 k/uL (3.8-10.6)
[2023-11-28] MEDS: CITRIC ACID-SODIUM CITRATE 15 ML CUP PO ONE (02:36)
--- NOTE | 2023-11-28 03:08 | P.HPOB ---
History of Present Illness H&P Date: 11/28/23 Chief Complaint: IUP at 35-1/7 weeks, complete previa, vaginal bleeding 33-year-old G3, P1 at 35-1/7 weeks that presents to labor and delivery with complaints of passage of clot and increased vaginal bleeding. Patient notes an increase in cramping in addition. Patient was recently admitted for close observation given bleeding and complete previa. Patient has had approximately 4+ episodes of bleeding this . Patient did receive steroids for maturation in addition. Ultrasound was completed prior to discharge yesterday morning, estimated weight 51st percentile, normal JAMES, vertex presentation. On blood work this patient is a blood type of A+, rubella status immune, RPR is nonreactive, hepatitis B surface engine negative, HIV negative, group beta strep culture was not completed as she is 35 weeks. History of term 39-week spontaneous vaginal delivery. Review of Systems Constitutional: Reports fatigue, Denies chills, Denies fever Ears, nose, mouth and throat: Denies headache Cardiovascular: Denies leg edema Respiratory: Denies dyspnea Gastrointestinal: Denies constipation, Denies diarrhea, Denies nausea, Denies vomiting Genitourinary: Reports Past Medical History Past Medical History: No Reported History History of Any Multi-Drug Resistant Organisms: None Reported Past Surgical History: Cholecystectomy Additional Past Surgical History / Comment(s): D&C Past Anesthesia/Blood Transfusion Reactions: No Reported Reaction Past Psychological History: Anxiety, Depression Smoking Status: Never smoker Past Alcohol Use History: None Reported Past Drug Use History: None Reported - Past Family History Mother Family Medical History: No Reported History Medications and Allergies Home Medications Medication Instructions Recorded Confirmed Type Aspirin 81 mg PO DAILY 11/02/23 11/18/23 History Vit No.179/Iron/Folic 1 tab PO DAILY 11/02/23 11/18/23 History [ Tablet] NIFEdipine XL [Procardia Xl] 30 mg PO DAILY 11/14/23 11/18/23 History Allergies Allergy/AdvReac Type Severity Reaction Status Date / Time amoxicillin [From Augmentin] Allergy Rash/Hives Verified 11/28/23 00:30 clavulanic acid Allergy Rash/Hives Verified 11/28/23 00:30 [From Augmentin] Exam Osteopathic Statement: *. No significant issues noted on an osteopathic structural exam other than those noted in the History and Physical/Consult. Intake and Output 11/27/23 11/27/23 11/28/23 14:59 22:59 06:59 Other: Weight 94.347 kg Targeted physical exam is performed this date General is a well-nourished well- developed female in no acute distress, breathing is nonlabored, heart has a regular rate and rhythm, abdomen is gravid, heart tones are noted to be category 1 and she is leanne every 4 minutes with uterine irritability, on expection of the patient's peripad bleeding is appreciated but nothing active is noted pooling from the vagina. Cervical exam is deferred given known complete previa Results Result Diagrams: 11/28/23 00:30 Abnormal Lab Results - Last 24 Hours (Table) 11/28/23 Range/Units 00:30 RBC 3.58 L (3.80-5.40) m/uL Hgb 10.7 L (11.4-16.0) gm/dL Hct 32.4 L (34.0-46.0) % Assessment and Plan (1) 35 to 36 weeks gestation of Current Visit: Yes Status: Acute Code(s): JOF0094 - SNOMED Code(s): 340330034 (2) Complete placenta previa nos or without hemorrhage, third trimester Current Visit: No Status: Acute Code(s): O44.03 - COMPLETE PLACENTA PREVIA NOS OR WITHOUT HEMOR, THIRD TRI SNOMED Code(s): 9047032 (3) Vaginal bleeding in Current Visit: No Status: Acute Code(s): O46.90 - ANTEPARTUM HEMORRHAGE, UNSPECIFIED, UNSPECIFIED TRIMESTER SNOMED Code(s): 26028875362376340 Plan: 33-year-old G3, P1 at 35-1/7 weeks presents with vaginal bleeding known complete placenta previa. Patient has had approximately 4 bleeds with this . Patient is counseled on need for primary . Patient does desire tubal ligation at this time. Patient is counseled on Filshie clips versus salpingectomy. Patient elects salpingectomy. Surgery is reviewed and risks are discussed. All questions were answered. Patient will be taken back to the operating suite.
[2023-11-28 03:12] LABS: Basophils % (A) 0 %; Eosinophils # (A) 0.1 k/uL (0-0.7); Eosinophils % (A) 2 %; HCT 31.7 % (34.0-46.0); HGB 10.3 gm/dL (11.4-16.0); Lymphocytes # (A) 2.8 k/uL (1.0-4.8); Lymphocytes % (A) 29 %; MCH 29.7 pg (25.0-35.0); MCHC 32.6 g/dL (31.0-37.0); MCV 91.2 fL (80.0-100.0); Mean Platelet Volume 8.3; Monocytes # (A) 0.4 k/uL (0-1.0); Monocytes % (A) 4 %; Neutrophils # (A) 6.3 k/uL (1.3-7.7); Neutrophils % (A) 64 %; Platelet Count 323 k/uL (150-450); RBC 3.47 m/uL (3.80-5.40); RDW 13.9 % (11.5-15.5); WBC 9.9 k/uL (3.8-10.6)
[2023-11-28] MEDS ORDERED: PHENYLEPHRINE-0.9% NACL SYG 1,000 MCG/10 ML SYRINGE ONE (03:20)
[2023-11-28] MEDS ORDERED: OXYTOCIN 30 UNITS/500 ML NS BAG IV ONE (03:20)
[2023-11-28] MEDS ORDERED: ONDANSETRON 4 MG/2 ML VIAL ONE (03:20)
[2023-11-28] MEDS ORDERED: MORPHINE SULFATE (PF) 0.3 MG/0.3 ML SYR ONE (03:20)
--- NOTE | 2023-11-28 04:29 | P.OP ---
Date of Procedure: 11/28/23 Preoperative Diagnosis: IUP at 35-1/7 weeks, complete previa, vaginal bleeding Postoperative Diagnosis: Same Procedure(s) Performed: Primary low-transverse section Anesthesia: spinal Surgeon: Dayana William Code Enforcement Officer #1: Mana Banks Estimated Blood Loss (ml): 475 IV fluids (ml): 400 Urine output (ml): 300 Pathology: other (Placenta) Condition: stable Disposition: observation Indications for Procedure: 33-year-old G3, P1 at 35-1/7 weeks presents with vaginal bleeding, known placenta previa. Patient has had multiple episodes of vaginal bleeding. Patient did receive steroids for lung maturation. Will plan to proceed with primary low-transverse section, patient desires bilateral salpingectomy as she is done with childbearing Operative Findings: Normal uterus tubes and ovaries were appreciated, viable female infant delivered at 352, weight 2595 g Description of Procedure: Patient was taken back to the operating suite where spinal anesthesia was found be adequate by the anesthesia department. She was prepped and draped in normal sterile fashion in the dorsal supine position. A Pfannenstiel skin incision was made with a scalpel and carried through the underlying layer of fascia. The fascia was incised the midline and extended laterally. The superior aspect of the fascial incision was then grasped with Citlaly clamps, elevated and the underlying rectus muscle was dissected off sharply. The inferior aspect of the fascial incision was then grasped with Citlaly clamps, elevated and the underlying rectus muscle was dissected off sharply the rectus muscles were the midline the peritoneum was identified and entered. The bladder blade was inserted into the pelvis. The bladder was noted to be free from the operating field therefore a hysterotomy incision was made the placenta was encountered initially followed by the head which was delivered via vacuum assist the umbilical cord was doubly clamped and cut and the infant was handed to waiting RN. The rest of the placenta was delivered manually intact, the uterus was exteriorized. The uterus was then cleared of all clots and debris with a moist laparotomy sponge. The hysterotomy incision was closed with 0 Vicryl in a running locked fashion and a second imbricating suture was performed. Multiple [id number] sutures were used to obtain hemostasis. Attention then turned to the patient's right fallopian tube which was elevated and the LigaSure was used to transect the mesosalpinx to the cornual region. Hemostasis was appreciated. This was then repeated on the opposite side. Hemostasis was noted and the uterus was returned to the abdomen. The hysterotomy incision was inspected and a small amount of bleeding was noted on the right-hand side therefore Surgicel powder was placed hemostasis was then noted. The peritoneum was then loosely reapproximated the rectus muscles were inspected found to be hemostatic. The fascia was then closed with 0 Vicryl in a running fashion from 1 lateral edge to the other. The subcutaneous tissue was irrigated found to be hemostatic and closed with 3-0 Vicryl in a running fa shion. The skin was closed with 4-0 Vicryl in a subcuticular fashion. Steri- Strips and sterile dressings were applied. All counts were noted be correct x 2 at the end of the procedure.
[2023-11-28] MEDS ORDERED: ONDANSETRON 4 MG/2 ML VIAL IVP PRN (04:32)
[2023-11-28] MEDS ORDERED: diphenhydrAMINE 50 MG CAP PO PRN (04:32)
[2023-11-28] MEDS ORDERED: diphenhydrAMINE 50 MG/ML 1 ML VIAL IVP PRN (04:32)
[2023-11-28] MEDS ORDERED: ZOLPIDEM 5 MG TAB PO PRN (04:32)
[2023-11-28] MEDS ORDERED: diphenhydrAMINE 25 MG CAP PO PRN (04:32)
[2023-11-28] MEDS ORDERED: OXYTOCIN 30 UNITS/500 ML NS 30 UNIT in SALINE 1 500ML.BAG IV SCH (04:32)
[2023-11-28] MEDS ORDERED: SIMETHICONE 80 MG CHEWABLE PO PRN (04:32)
[2023-11-28] MEDS ORDERED: NALOXONE 0.4 MG/ML 1 ML VIAL IV PRN (04:32)
[2023-11-28] MEDS ORDERED: METOCLOPRAMIDE 5 MG/ML 2 ML VIAL IVP PRN (04:32)
[2023-11-28] MEDS: ACETAMINOPHEN IV (For NPO) 1,000 MG in EMPTY BAG 1 BAG IVPB SCH (04:56)
[2023-11-28] MEDS: diphenhydrAMINE 50 MG/ML 1 ML VIAL IVP PRN (05:34)
[2023-11-28] MEDS: LACTATED RINGERS 1,000 ML IV SCH ×2 (07:58)
[2023-11-28] MEDS: LACTATED RINGERS 1,000 ML IV ONE (07:58)
[2023-11-28] MEDS: ACETAMINOPHEN TAB 500 MG TAB PO SCH (07:59)
[2023-11-28] MEDS: SENNOSIDES-DOCUSATE SODIUM 1 EACH TAB PO SCH (08:10)
[2023-11-28] MEDS: IBUPROFEN 600 MG TAB PO SCH (10:25)
[2023-11-28] MEDS: IBUPROFEN IV 800 MG in SODIUM CHLORIDE 0.9% 250 ML IV SCH (10:48)
--- NOTE | 2023-11-28 13:54 | P.PNOBGPC ---
Subjective - Subjective Principal diagnosis: Postop day 0 Interval history: Patient is overall doing well. Fully catheter was removed this morning, awaiting spontaneous void. She states her pain is well-controlled. Patient reports: Reports appetite normal, Reports voiding normally, Reports pain well controlled, Reports ambulating normally [place]: doing well (Special care nursery on high flow oxygen) Objective - Vital Signs Latest vital signs: Vital Signs Temp Pulse Resp BP Pulse Ox 11/28/23 12:00 98.4 F 92 16 108/74 96 11/28/23 08:13 97.9 F 82 16 107/70 98 11/28/23 06:27 97.2 F L 91 16 107/70 98 11/28/23 06:14 76 16 104/70 98 11/28/23 05:59 75 16 97/66 98 11/28/23 05:45 72 16 102/67 97 11/28/23 05:30 81 16 104/67 98 11/28/23 05:15 82 16 103/55 96 11/28/23 05:00 82 16 99/63 98 11/28/23 04:57 74 16 99/63 97 11/28/23 04:42 87 16 105/56 98 11/28/23 04:27 97.5 F L 88 16 94/53 96 Intake and Output 11/27/23 11/28/23 11/28/23 22:59 06:59 14:59 Intake Total 400 Output Total 953 300 Balance -553 -300 Intake: IV 400 Output: Urine 450 300 Uretheral (David) 300 Output, Quantitative 503 Blood Loss Other: Voiding Method Indwelling Catheter Weight 94.347 kg - Exam Extremities: Present: normal, edema Abdomen: Present: normal appearance, soft Incision: Present: normal, dry, intact Uterus: Present: normal, firm - Labs Labs: Abnormal Lab Results - Last 24 Hours (Table) 11/28/23 11/28/23 Range/Units 00:30 03:03 RBC 3.58 L 3.47 L (3.80-5.40) m/uL Hgb 10.7 L 10.3 L (11.4-16.0) gm/dL Hct 32.4 L 31.7 L (34.0-46.0) % Assessment and Plan (1) 35 to 36 weeks gestation of Current Visit: Yes Status: Acute Code(s): SWE0526 - SNOMED Code(s): 859582082 (2) Complete placenta previa nos or without hemorrhage, third trimester Current Visit: No Status: Acute Code(s): O44.03 - COMPLETE PLACENTA PREVIA NOS OR WITHOUT HEMOR, THIRD TRI SNOMED Code(s): 6178121 (3) Vaginal bleeding in Current Visit: No Status: Acute Code(s): O46.90 - ANTEPARTUM HEMORRHAGE, UNSPECIFIED, UNSPECIFIED TRIMESTER SNOMED Code(s): 82547981386647932 (4) Status post section Current Visit: Yes Status: Acute Code(s): Z98.891 - HISTORY OF UTERINE SCAR FROM PREVIOUS SURGERY SNOMED Code(s): 487561650 Plan: 33-year-old 3 now para 1-2-1-2 s/p primary for complete previa, vaginal bleeding noted. Patient had multiple episodes of vaginal bleeding therefore primary was performed early this morning. Patient is doing well postoperatively. Will continue routine postoperative care.
--- NOTE | 2023-11-29 06:52 | P.PN ---
Progress Note - Text Progress Note Date: 11/29/23 Patient doing well. Ambulating w/o pain, weakness or paresthesia. Denies headache. Denies pruritis. Pain managed w/ multimodal analgesia. POD#1 s/p w/ spinal duramorph - doing well
[2023-11-29 08:09] LABS: Basophils % (A) 0 %; Eosinophils # (A) 0.2 k/uL (0-0.7); Eosinophils % (A) 2 %; HCT 24.9 % (34.0-46.0); Lymphocytes # (A) 2.5 k/uL (1.0-4.8); Lymphocytes % (A) 21 %; MCH 29.7 pg (25.0-35.0); MCHC 32.2 g/dL (31.0-37.0); MCV 92.2 fL (80.0-100.0); Mean Platelet Volume 8.5; Monocytes # (A) 0.6 k/uL (0-1.0); Monocytes % (A) 6 %; Neutrophils # (A) 8.1 k/uL (1.3-7.7); Neutrophils % (A) 70 %; Platelet Count 260 k/uL (150-450); WBC 11.6 k/uL (3.8-10.6)
--- NOTE | 2023-11-29 09:14 | P.PNOBGPC ---
Subjective - Subjective Principal diagnosis: Postop day 1, primary , complete previa, vaginal bleeding Interval history: Patient is doing well postoperatively. She is ambulating and voiding without difficulty. She is tolerating a regular diet without nausea or vomiting. She states her pain is well-controlled. remains in the nursery on high flow oxygen. Patient reports: Reports appetite normal, Reports voiding normally, Reports pain well controlled, Reports ambulating normally [place]: doing well (On high flow oxygen and special care nursery) Objective - Vital Signs Latest vital signs: Vital Signs Temp Pulse Resp BP Pulse Ox 11/29/23 04:00 97.4 F L 80 16 91/60 96 11/29/23 00:00 97.4 F L 93 16 108/74 11/28/23 19:42 98.2 F 93 16 112/76 11/28/23 16:27 98.8 F 94 16 95/66 96 11/28/23 12:00 98.4 F 92 16 108/74 96 Intake and Output 11/28/23 11/29/23 11/29/23 22:59 06:59 14:59 Output Total 150 Balance -150 Output: Urine 150 Other: # Voids 1 1 2 - Exam Extremities: Present: normal, edema Abdomen: Present: normal appearance, soft Incision: Present: normal, dry, intact Uterus: Present: normal, firm - Labs Labs: Abnormal Lab Results - Last 24 Hours (Table) 11/29/23 Range/Units 07:33 WBC 11.6 H (3.8-10.6) k/uL RBC 2.70 L (3.80-5.40) m/uL Hgb 8.0 L D (11.4-16.0) gm/dL Hct 24.9 L (34.0-46.0) % Neutrophils # 8.1 H (1.3-7.7) k/uL Assessment and Plan (1) 35 to 36 weeks gestation of Current Visit: Yes Status: Acute Code(s): WLN9223 - SNOMED Code(s): 408061600 (2) Complete placenta previa nos or without hemorrhage, third trimester Current Visit: No Status: Acute Code(s): O44.03 - COMPLETE PLACENTA PREVIA N OS OR WITHOUT HEMOR, THIRD TRI SNOMED Code(s): 9889625 (3) Vaginal bleeding in Current Visit: No Status: Acute Code(s): O46.90 - ANTEPARTUM HEMORRHAGE, UNSPECIFIED, UNSPECIFIED TRIMESTER SNOMED Code(s): 88359372226328822 (4) Status post section Current Visit: Yes Status: Acute Code(s): Z98.891 - HISTORY OF UTERINE SCAR FROM PREVIOUS SURGERY SNOMED Code(s): 605028609 Plan: 33-year-old G3 now P2-0-1-2 status post primary with bilateral salpingectomy. Patient is doing well postoperatively. Plan to continue routine postoperative care
--- NOTE | 2023-11-30 08:52 | P.PNOBGPC ---
Subjective - Subjective Principal diagnosis: POD 2 LTCS, b/l salpingectomy Interval history: Patient is doing well overall, baby remains in the nursery. lochia is minimal to moderate, pain well controlled Patient reports: Reports appetite normal, Reports voiding normally, Reports pain well controlled, Reports ambulating normally [place]: doing well (In SCN) Objective - Vital Signs Latest vital signs: Vital Signs Temp Pulse Resp BP Pulse Ox 11/30/23 07:56 97.8 F 86 16 108/80 99 11/30/23 04:00 98.0 F 83 16 103/63 97 11/29/23 23:58 98.0 F 83 16 103/63 97 Intake and Output 11/29/23 11/30/23 11/30/23 22:59 06:59 14:59 Other: # Voids 2 2 1 - Exam Extremities: Present: normal, edema Abdomen: Present: normal appearance, soft Incision: Present: normal, dry, intact Uterus: Present: normal, firm Assessment and Plan (1) 35 to 36 weeks gestation of Current Visit: Yes Status: Acute Code(s): [id number] - SNOMED Code(s): 317230364 (2) Complete placenta previa nos or without hemorrhage, third trimester Current Visit: No Status: Acute Code(s): O44.03 - COMPLETE PLACENTA PREVIA NOS OR WITHOUT HEMOR, THIRD TRI SNOMED Code(s): 1862477 (3) Vaginal bleeding in Current Visit: No Status: Acute Code(s): O46.90 - ANTEPARTUM HEMORRHAGE, UNSPECIFIED, UNSPECIFIED TRIMESTER SNOMED Code(s): 30844126867976047 (4) Status post section Current Visit: Yes Status: Acute Code(s): Z98.891 - HISTORY OF UTERINE SCAR FROM PREVIOUS SURGERY SNOMED Code(s): 992123259 Plan: 33-year-old G3 now P2-0-1-2 status post primary with bilateral salpingectomy. Patient is doing well postoperatively. Plan to continue routine postoperative care
--- NOTE | 2023-12-01 08:45 | P.PNOBGPC ---
Subjective - Subjective Principal diagnosis: Postop day 3, primary , bilateral salpingectomy Interval history: Patient is doing well, lochia is minimal, pain is well-controlled, she is pumping. remains in the nursery on bili lights. Patient reports: Reports appetite normal, Reports voiding normally, Reports pain well controlled, Reports ambulating normally (In special care nursery on bili lights) [place]: doing well Objective - Vital Signs Latest vital signs: Vital Signs Temp Pulse Resp BP Pulse Ox 12/01/23 00:00 98.3 F 78 16 110/73 98 11/30/23 15:59 98.5 F 85 16 110/66 97 Intake and Output 11/30/23 12/01/23 12/01/23 22:59 06:59 14:59 Intake Total 600 Balance 600 Intake: Oral 600 Other: # Voids 1 - Exam Extremities: Present: normal, edema Abdomen: Present: normal appearance, soft Incision: Present: normal, dry, intact Uterus: Present: normal, firm Assessment and Plan (1) 35 to 36 weeks gestation of Current Visit: Yes Status: Acute Code(s): [id number] - SNOMED Code(s): 337667296 (2) Complete placenta previa nos or without hemorrhage, third trimester Current Visit: No Status: Acute Code(s): O44.03 - COMPLETE PLACENTA PREVIA NOS OR WITHOUT HEMOR, THIRD TRI SNOMED Code(s): 1759269 (3) Vaginal bleeding in Current Visit: No Status: Acute Code(s): O46.90 - ANTEPARTUM HEMORRHAGE, UNSPECIFIED, UNSPECIFIED TRIMESTER SNOMED Code(s): 58170304362022533 (4) Status post section Current Visit: Yes Status: Acute Code(s): Z98.891 - HISTORY OF UTERINE SCAR FROM PREVIOUS SURGERY SNOMED Code(s): 795996861 Plan: Postop day 3, primary for complete previa with vaginal bleeding. Patient is doing well postoperatively. Plan to continue routine postoperative care and anticipate discharge home tomorrow.
[2023-12-02 09:19] VITALS: BP 132/88; PULSE 68; RESP 17; TEMP 97.9
--- NOTE | 2023-12-02 13:06 | P.DS ---
Providers Date of admission: 11/28/23 00:26 Expected date of discharge: 12/02/23 Attending physician: Dayana William Primary care physician: Stated None - Discharge Diagnosis(es) (1) 35 to 36 weeks gestation of Current Visit: Yes Status: Acute (2) Complete placenta previa nos or without hemorrhage, third trimester Current Visit: No Status: Acute (3) Vaginal bleeding in Current Visit: No Status: Acute (4) Status post section Current Visit: Yes Status: Acute Hospital Course: 33-year-old G3 now P2012 that presented to labor and delivery at 35-1/7 weeks with continued complaints of vaginal bleeding. Patient had a known complete previa and had been admitted at 34 weeks for her third episode of vaginal bleeding. Patient Annika presented approximately 12 hours later after discharge. Patient was counseled on need to proceed with repeat section given nature of bleeding. Patient understood and agreed to proceed with primary low- transverse section. Patient in addition requested bilateral salpingectomy as she states she is done with childbearing. Patient underwent primary with bilateral salpingectomy with delivery of a viable female at 352 on 11/27. Patient has done well postoperatively. On this postoperative day #4 she is ambulating and voiding without difficulty. She is tolerating a regular diet without nausea or vomiting. She states her pain is well-controlled. She is pumping/bottlefeeding. She would like discharge home Patient Condition at Discharge: Good Plan - Discharge Summary Discharge Rx Participant: Yes New Discharge Prescriptions: No Action Vit No.179/Iron/Folic [ Tablet] 1 tab PO DAILY Aspirin 81 mg PO DAILY NIFEdipine XL [Procardia Xl] 30 mg PO DAILY Discharge Medication List Aspirin 81 mg PO DAILY 11/02/23 [History] Vit No.179/Iron/Folic [ Tablet] 1 tab PO DAILY 11/02/23 [History] NIFEdipine XL [Procardia Xl] 30 mg PO DAILY 11/14/23 [History] Follow up Appointment(s)/Referral(s): Dayana William DO [Doctor of Osteopathic Medicine] - 01/10/24 1:45 pm (PO 12/09/2023 @1:30Pm PP 01/10/2024 @1:45Pm) Patient Instructions/Handouts: (DC), (GEN) Activity/Diet/Wound Care/Special Instructions: No intercourse, or tub baths. No heavy lifting greater than a gallon of milk. No driving for two weeks. Call with any fever, shakes or chills, with any pain not alleviated by over the counter meds, or with any quesions or concerns. Hkjl-lyd-[id number] ibuprofen 600 mg or 3 tablets every 6 hours as needed for pain. Discharge Disposition: HOME SELF-CARE
== END 2023-12-02 14:47 | disposition home or self-care (01) | DRG 783 ==
LOC: FBPOP 00:07 → 4FBP 00:26
PROVIDERS: ADMIT Obstetrics & Gynecology Obstetrics; ATTEND Obstetrics & Gynecology Obstetrics
PROC: 0UB70ZZ Excision of Bilateral Fallopian Tubes, Open Approach (ICD-10-PCS; 2023-11-28)
PROC: 10D00Z1 Extraction of Products of Conception, Low, Open Approach (ICD-10-PCS; principal; 2023-11-28 03:00)
DX: O44.13 Complete placenta previa with hemorrhage, third trimester (principal); O60.14X0 Preterm labor third trimester with preterm delivery third trimester, not applicable or unspecified; F32.A Depression, unspecified; F41.9 Anxiety disorder, unspecified; O99.344 Other mental disorders complicating childbirth; Z37.0 Single live birth; Z3A.36 36 weeks gestation of pregnancy; Z79.82 Long term (current) use of aspirin; Z79.899 Other long term (current) drug therapy; Z30.2 Encounter for sterilization
CPT/HCPCS: 85025; 86850; 86900; 86901; 88302; 88307